=== PATIENT | female | born 2000 | race Caucasian/White ===

== ENCOUNTER 2024-02-03 16:09 | Emergency (ER) | payer OTHER, SELFPAY ==
[2024-02-03 16:12] VITALS: BP 106/75; BMI 31.4
[2024-02-03 16:26] LABS: % Basophils 0.7 % (0-2); % Eosinophils 1.2 % (0-6); % Immature Granulocytes 0.4 % (0-0.5); % Lymphocytes 23.7 % (20.5-51.1); % Monocytes 6.1 % (1.7-9.3); % Neutrophils 67.9 % (42.2-75.2); Absolute Basophils 0.1 10^3/uL (0-0.2); Absolute Eosinophils 0.1 10^3/uL (0-0.7); Absolute Lymphocytes 2.3 10^3/uL (1.2-3.4); Absolute Monocytes 0.6 10^3/uL (0.1-0.6); Absolute Neutrophils 6.7 10^3/uL (1.4-6.5); Hematocrit 39.1 % (37.0-47.0); Hemoglobin 13.7 g/dL (12.0-16.0); Mean Corpuscular Hgb 30.7 pg (27.0-31.0); Mean Corpuscular Volume 87.7 fL (81.0-99.0); Mean Platelet Volume 9.8 fL (7.4-10.4); Nucleated Red Blood Cells % 0 %; Platelet Count 366 10^3/uL (130-400); Red Blood Cell Count 4.46 10^6/uL (4.20-5.40); Red Cell Dist. Width 12.1 % (11.5-14.5); White Blood Cell Count 9.8 10^3/uL (4.8-10.8)
[2024-02-03 16:53] LABS: ALT (SGPT) 22 U/L (0-35); AST (SGOT) 25 U/L (14-36); Albumin 4.4 g/dl (3.5-5.0); Alkaline Phosphatase 57 U/L (38-126); Blood Urea Nitrogen 10 mg/dl (7-17); Carbon Dioxide 23 mmol/L (22-30); Chloride 104 mmol/L (98-107); Estimated Creatinine Clearance > 125 ml/min; Glucose 84 mg/dl (70-99); Potassium 3.9 mmol/L (3.5-5.1); Sodium 137 mmol/L (135-145); Total Bilirubin 0.3 mg/dl (0.2-1.3); Total Protein 7.1 g/dl (6.3-8.2); eGFR > 60.00
[2024-02-03 16:54] LABS: HCG, Serum Qualitative Screen Positive
--- NOTE | 2024-02-03 18:23 | ED.GENMED ---
History of Present Illness
General
Chief Complaint: Abdominal Pain
Source: patient
Exam Limitations: none
Time Seen by Provider: 02/03/24 16:49
Nursing documentation reviewed up to this point in time: agreed with
Travel History
Have you had any contact with someone who has COVID-19?: No
Do you have any symptoms of coronavirus? Fever > 100 degrees, chills, cough, shortness of breath, sore throat, loss of taste or smell, muscle aches, or headache?: No
History of Present Illness
History of Present Illness:
23 yo female [id number] states she is 5 weeks , has had off and on every couple of weeks abdominal pains since 01/20 becoming more frequent and last night pain was it's worst at 8/10. States pain is generally about the entire abdomen, last
night was burning and tightness upper abdomen and cramping lower abdomen. Mild nausea, no vomiting. Has felt fatigued, denies CP, SOB, D/C. Breasts are sore.Denies vaginal bleeding or abnormal discharge
Past History
Past History
ED Past Medical History: None
ED Past Surgical History: None
Social History
Tobacco: Former smoker
Alcohol: None
Personal:
Living: with family
Employment: Employed
Review of Systems
Review of Systems
Allergies reviewed?: Yes
All Other Systems: ROS reviewed and negative except as documented in HPI and ROS
Constitutional: Reports fatigue; Denies fever
Respiratory: Denies trouble breathing
Cardiac: Denies chest pain
ABD/GI: Reports abdominal pain and nausea; Denies vomiting, diarrhea, constipated or anorexia
: Denies dysuria, frequency, flank pain, difficulty voiding, urgency, bleeding or discharge
Musculoskeletal: Reports no symptoms
Skin: Reports no symptoms
Neurological: Reports no symptoms
Phy Exam
Physical Exam
Physical Exam:
GENERAL: No acute distress. A&Ox3.
CONSTITUTIONAL: Afebrile.
EYES: PERRL, conjunctivae normal
ENMT: moist mucus membranes, Pharynx nl
RESPIRATORY: Regular respirations, nonlabored, lungs clear.
CARDIOVASCULAR: Regular rate and rhythm, no murmurs, no rubs.
GI: Soft, generally mildly tender, normal BS
MUSCULOSKELETAL: Moves with ease. Well perfused.
SKIN: Warm, dry, pink
PSYCH: Normal mood and affect. Well kept, interactive and appropriate
NEUROLOGIC: Awake, alert and oriented. No focal neurological deficits
Course
Orders/Labs/Results
Orders:
Orders
02/03/24 16:12
Test Result ONCE
02/03/24 16:17
Beta HCG Quantitative Urgent
Comment: HCG QUANTITATIVE ADDED ON BY FLOOR 5PM 02-03-24
CMP [Comprehensive Metabolic Panel] Urgent
Complete Blood Count/With Diff Urgent
HCG, Serum Qualitative Screen Urgent
02/03/24 16:55
Add On- LAB Urgent
Tests Added?: HCG Quantitative
02/03/24 17:05
US 1st Trimester Urgent
Comment:
Reason For Exam: gen abd pain 5 weeks
02/03/24 19:41
Urinalysis Reflex To Culture Urgent
Date Specimen was Collected: 02/03/24
Time Specimen was Collected: 19:39
Abnormal Lab Results
02/03/24
16:17
Absolute Neuts (auto) 6.7 H 10^3/uL
(1.4-6.5)
Creatinine 0.5 L mg/dL
(0.6-1.0)
02/03/24 16:17
02/03/24 16:17
Vital Signs
Initial and Last Documented VS:
Initial Vital Signs
Temp Pulse Resp BP Pulse Ox
97.5 F 85 16 106/75 97
02/03/24 16:12 02/03/24 16:12 02/03/24 16:12 02/03/24 16:12 02/03/24 16:12
Last Documented Vital Signs
Temp Pulse Resp BP Pulse Ox
97.5 F 67 20 106/72 99
02/03/24 16:12 02/03/24 19:42 02/03/24 19:42 02/03/24 19:42 02/03/24 19:42
MDM/Problems Addressed
Differential Diagnosis Includes:
Gastritis, Cramping of early , dehydration, miscarriage, UTI
MDM/Problems Addressed:
23 yo female hx of cholecystectomy, [id number] states she is 5 weeks , has had off and on every couple of weeks abdominal pains since 01/20 becoming more frequent and last night pain was it's worst at 8/10. States pain is generally about the
entire abdomen, last night was burning and tightness upper abdomen and cramping lower abdomen. Mild nausea, no vomiting. Has felt fatigued, denies CP, SOB, D/C. Breasts are sore.Denies vaginal bleeding or abnormal discharge
NAD
7:51 PM
CBC normal
CMP normal
hCG quantitative 38158.00
Pelvic ultrasound radiology results read: IMPRESSION:
Findings compatible with a live ivy intrauterine of approximately 6 weeks 1 day by crown-rump length. Serial hCGs and follow up pelvic ultrasound recommended as clinically indicated.
U/A normal
Patient given copy of ultrasound results
Patient ambulated out with normal gait upon discharge
She has an appointment with her OB next week
*Critical Care Note
Total Time (30-74mins, 75-104mins- exclusive of procedures): Not Applicable
ED Attending Note
-
Portions of this chart may have been created with voice recognition software.� Occasional wrong word or��sound alike� substitutions may have occurred due to the inherent limitations of voice recognition software.
Discharge Plan
Departure
Patient Disposition: Home (Routine Discharge)
Date of Disposition: 02/03/24
Time of Disposition: 20:21
Patient with high blood pressure during this ER visit?: No
Condition: Good
Discharge Problem:
Abdominal pain during
Instructions: Stomach Pain in Early , Abdominal Pain
Referrals:
Your, OB doctor [Other] - Keep scheduled appt
UNKNOWN - PT DOES,NOT KNOW [Family Provider] -
Activity Restrictions/Additional Instructions:
As we discussed, nothing worrisome in your workup here today
No urine infection
See your OB doctor as scheduled next week
Interventions
Interventions:
*Risk Screen - Suicide Last Done: 02/03/24 16:12
*General Assessment Last Done: 02/03/24 18:12
*Neglect/Abuse Screening Last Done: 02/03/24 16:12
*ED COVID-19 Vaccine History Last Done: 02/03/24 16:12
*Nursing Disposition Last Done: 02/03/24 20:27
DE-Vkvwgx-Urwswnzzrj Assessment Last Done: 02/03/24 18:16
Discharge Date and Time
Discharge Date/Time: 02/03/24 20:27
Print Language: [id number]
[2024-02-03 19:42] VITALS: BP 106/72
[2024-02-03 20:02] LABS: Urine Albumin Negative (Neg - Trace); Urine Bilirubin Negative (Negative); Urine Character Clear (Clear); Urine Color Yellow; Urine Glucose Negative (Negative); Urine Ketone Negative (Negative); Urine Leukocyte Negative (Negative); Urine Nitrite Negative (Negative); Urine Occult Blood Negative (Negative); Urine Specific Gravity 1.005 (<1.030); Urine Urobilinogen Negative (Neg - 1+)
== END 2024-02-03 20:27 | disposition home or self-care (01) ==
LOC: EMR 16:09
PROVIDERS: Registered Nurse; EMERGENCY PHYSICIAN Student in an Organized Health Care Education/Training Program
DX: O26.891 Other specified pregnancy related conditions, first trimester (principal); R10.9 Unspecified abdominal pain; Z3A.01 Less than 8 weeks gestation of pregnancy
CPT/HCPCS: 99284; 76801; 80053; 81003; 84702; 84703; 85025

== ENCOUNTER → 2024-05-29 16:25 | Outpatient (REF) | payer OTHER, SELFPAY | LOC: PNTC 16:25 | PROVIDERS: ATTENDING PHYSICIAN Obstetrics & Gynecology | DX: Z34.82 Encounter for supervision of other normal pregnancy, second trimester (principal) | CPT/HCPCS: 76811 ==

== ENCOUNTER 2024-06-04 17:43 | Observation (INO) | payer OTHER, SELFPAY ==
[2024-06-04 18:13] VITALS: BP 97/64; BMI 29.0
[2024-06-04] MEDS: BENADRYL 25 MG IV (18:34)
[2024-06-04] MEDS: REGLAN 10 MG IV (18:35)
[2024-06-04 18:38] LABS: Hematocrit 31.7 % (37.0-47.0); Hemoglobin 11.1 g/dL (12.0-16.0); Mean Corpuscular Hgb 29.5 pg (27.0-31.0); Mean Corpuscular Volume 84.3 fL (81.0-99.0); Mean Platelet Volume 10.4 fL (7.4-10.4); Platelet Count 281 10^3/uL (130-400); Red Blood Cell Count 3.76 10^6/uL (4.20-5.40); Red Cell Dist. Width 13.2 % (11.5-14.5); White Blood Cell Count 9.8 10^3/uL (4.8-10.8)
[2024-06-04 19:09] LABS: ALT (SGPT) 37 U/L (0-35); AST (SGOT) 24 U/L (14-36); Albumin 3.7 g/dl (3.5-5.0); Alkaline Phosphatase 105 U/L (38-126); Blood Urea Nitrogen 4 mg/dl (7-17); Calcium 9.3 mg/dl (8.4-10.2); Carbon Dioxide 21 mmol/L (22-30); Chloride 108 mmol/L (98-107); Estimated Creatinine Clearance > 125 ml/min; Glucose 97 mg/dl (70-99); Potassium 3.7 mmol/L (3.5-5.1); Sodium 134 mmol/L (135-145); Total Bilirubin 0.2 mg/dl (0.2-1.3); Total Protein 6.4 g/dl (6.3-8.2); eGFR > 60.00
== END 2024-06-04 20:49 | disposition home or self-care (01) ==
LOC: LDRP 17:43
PROVIDERS: ADMITTING PHYSICIAN Obstetrics & Gynecology
DX: G43.909 Migraine, unspecified, not intractable, without status migrainosus (principal); Z34.82 Encounter for supervision of other normal pregnancy, second trimester; Z3A.23 23 weeks gestation of pregnancy
CPT/HCPCS: 80053; 85027; G0378

== ENCOUNTER → 2024-06-11 15:46 | Outpatient (REF) | payer OTHER, SELFPAY | LOC: PNTC 15:46 | PROVIDERS: ATTENDING PHYSICIAN Obstetrics & Gynecology; FAMILY PHYSICIAN Obstetrics & Gynecology | DX: Z36.0 Encounter for antenatal screening for chromosomal anomalies (principal); O99.210 Obesity complicating pregnancy, unspecified trimester | CPT/HCPCS: 76815 ==

== ENCOUNTER → 2024-09-16 07:42 | Outpatient (REF) | payer OTHER, SELFPAY | LOC: PNTC 07:42 | PROVIDERS: ATTENDING PHYSICIAN Student in an Organized Health Care Education/Training Program | DX: O36.60X0 Maternal care for excessive fetal growth, unspecified trimester, not applicable or unspecified (principal) | CPT/HCPCS: 76816 ==

== ENCOUNTER 2024-09-21 19:09 | Inpatient (IN) | payer OTHER, SELFPAY ==
[2024-09-21 19:20] VITALS: BMI 32.0
[2024-09-21 19:34] VITALS: BP 104/66
[2024-09-21 20:05] LABS: % Basophils 0.2 % (0-2); % Lymphocytes 19.7 % (20.5-51.1); % Monocytes 6.9 % (1.7-9.3); % Neutrophils 71.2 % (42.2-75.2); Absolute Eosinophils 0.1 10^3/uL (0-0.7); Absolute Immature Granulocytes 0.1 10^3/uL (0-0.05); Absolute Lymphocytes 1.7 10^3/uL (1.2-3.4); Absolute Monocytes 0.6 10^3/uL (0.1-0.6); Hematocrit 31.1 % (37.0-47.0); Hemoglobin 10.2 g/dL (12.0-16.0); Mean Corp Hgb Conc. 32.8 g/dL (33.0-37.0); Mean Corpuscular Hgb 26.1 pg (27.0-31.0); Mean Corpuscular Volume 79.5 fL (81.0-99.0); Mean Platelet Volume 10.8 fL (7.4-10.4); Nucleated Red Blood Cells % 0 %; Platelet Count 232 10^3/uL (130-400); Red Blood Cell Count 3.91 10^6/uL (4.20-5.40); Red Cell Dist. Width 13.8 % (11.5-14.5); White Blood Cell Count 8.4 10^3/uL (4.8-10.8)
[2024-09-21] MEDS: CYTOTEC 50 MICROGRAM VAG (20:11)
[2024-09-22] MEDS: CYTOTEC PO ×3 (00:35→12:51)
[2024-09-22] MEDS: LR 1000 IV ×2 (01:28→09:57)
[2024-09-22] MEDS: CYTOTEC 25 MICROGRAM PO (04:20)
[2024-09-22] MEDS: SUBLIMAZE 100 MCG EPIDURAL (09:57)
[2024-09-22] MEDS: FENTANYL/BUPIVACAINE 100 EPIDURAL (09:57)
[2024-09-22] MEDS: TYLENOL 650 MG PO (19:37)
[2024-09-22] MEDS: MOTRIN 600 MG PO (19:38)
[2024-09-23] MEDS: MOTRIN 600 MG PO ×3 (01:52→17:48)
[2024-09-23] MEDS: TYLENOL 650 MG PO ×3 (01:52→17:48)
[2024-09-23 04:21] LABS: Hematocrit 31.7 % (37.0-47.0); Hemoglobin 10.2 g/dL (12.0-16.0)
[2024-09-23] MEDS: SENOKOT-S 1 TABLET PO (07:26)
[2024-09-24] MEDS: MOTRIN 600 MG PO ×2 (00:29→08:47)
[2024-09-24] MEDS: TYLENOL 650 MG PO ×2 (00:30→08:47)
[2024-09-24 15:31] LABS: Syphilis/T. pallidum Ab Reflex Negative (Negative)
== END 2024-09-24 13:18 | disposition home or self-care (01) | DRG 807 ==
LOC: LDRP 19:09
PROVIDERS: Obstetrics & Gynecology; ADMITTING PHYSICIAN Obstetrics & Gynecology
PROC: 3E0P7VZ Introduction of Hormone into Female Reproductive, Via Natural or Artificial Opening (ICD-10-PCS; 2024-09-21)
PROC: 0HQ9XZZ Repair Perineum Skin, External Approach (ICD-10-PCS; 2024-09-22)
PROC: 10907ZC Drainage of Amniotic Fluid, Therapeutic from Products of Conception, Via Natural or Artificial Opening (ICD-10-PCS; 2024-09-22)
PROC: 10E0XZZ Delivery of Products of Conception, External Approach (ICD-10-PCS; 2024-09-22)
DX: O36.63X0 Maternal care for excessive fetal growth, third trimester, not applicable or unspecified (principal); Z37.0 Single live birth; O70.0 First degree perineal laceration during delivery; Z3A.39 39 weeks gestation of pregnancy
CPT/HCPCS: 88307; 85014; 85018; 85025; 86780; 86850; 86900; 86901